=== PATIENT | female | born 1945 | race Asian ===

== ENCOUNTER 2023-03-25 19:35 | Inpatient (IN) | payer MEDICARE, MEDICAID ==
[~2023-03-25] VITALS: Ht 167.6 cm; Wt 51.4 kg
[2023-03-25 20:25] LABS: Basophils # (auto) 0 10 ^3/uL (0-0.2); Eosinophils # (auto) 0 10 ^3/uL (0-0.8); Hemoglobin 10.9 g/dL (12.2-16.2); Neutrophils # (auto) 6.1 10 ^3/uL (1.6-8.6)
[2023-03-25 20:28] LABS: Basophils % (auto) 0.4 % (0.0-2.0); Eosinophils % (auto) 0.1 % (0.0-7.0); Hematocrit 35.5 % (36.0-46.0); Lymphocytes # (auto) 1.3 10 ^3/uL (0.4-5.4); Lymphocytes % (auto) 15.3 % (10.0-50.0); Mean Corpuscular Hemoglobin 23.5 pg (28.0-32.0); Mean Corpuscular Hgb Conc. 30.8 g/dL (32.0-36.0); Mean Corpuscular Volume 76.4 fL (80.0-100.0); Monocytes # (auto) 1.2 10 ^3/uL (0-1.3); Monocytes % (auto) 13.6 % (0.0-12.0); Neutrophils % (auto) 70.6 % (37.0-80.0); Nucleated Red Blood Cells % 0.1 %; Red Blood Cells 4.65 10^6/uL (4.0-5.20); Red Cell Distribution Width 17.8 % (11.8-14.3); White Blood Cell 8.6 10^3/uL (4.4-10.8)
[2023-03-25 20:37] LABS: Chloride 102 mmol/L (98-107); Potassium 4.7 mmol/L (3.5-5.1); Sodium 135 mmol/L (136-145)
[2023-03-25 20:38] LABS: Anion Gap 6 (5-15); Calcium 9.2 mg/dL (8.5-10.1); Carbon Dioxide 27 mmol/L (20-30)
[2023-03-25 20:43] LABS: BUN/Creatinine Ratio 20.6 (10.0-20.0); Blood Urea Nitrogen 36 mg/dL (9-23); Glucose 146 mg/dL (74-106)
[2023-03-25] MEDS: ACETAMINOPHEN 500 MG TAB PO ONE (20:45)
[2023-03-25 21:45] VITALS: PULSE 65; RESP 14; O2SAT 98
[2023-03-25] MEDS: ENOXAPARIN SOD 40 MG/0.4 ML SYRINGE SC ONE (22:28)
[2023-03-25 23:17] LABS: Urine Bacteria FEW /hpf (None Seen); Urine Blood Negative /uL (Negative); Urine Clarity Clear (Clear); Urine Color Yellow (Yellow); Urine Protein, UAD 1+ (Negative); Urine Specific Gravity 1.026 (1.001-1.035); Urine Urobilinogen Normal (Negative); Urine WBC 3 /hpf (0 - 5); Urine pH 5.5 (5.0-8.0)
[2023-03-26] MEDS: SODIUM CHLORIDE 0.9% 1,000 ML IV ONE (00:32)
[2023-03-26] MEDS ORDERED: NITROGLYCERIN 0.4 MG SL TAB SL PRN (04:15)
[2023-03-26] MEDS ORDERED: ONDANSETRON HCL 4 MG/2 ML VIAL IV PRN (04:15)
[2023-03-26] MEDS ORDERED: MORPHINE SULFATE INJ 2 MG/ml SYRG IV PRN (04:15)
[2023-03-26 08:00] VITALS: PULSE 61; RESP 14; O2SAT 98
[2023-03-26 09:21] LABS: Magnesium 2.1 mg/dL (1.6-2.6)
[2023-03-26] MEDS: ASPirin 81 mg TAB PO SCH (10:40)
[2023-03-26] MEDS: MECLIZINE HCL 25 MG TAB PO SCH (11:27)
[2023-03-26] MEDS: SODIUM CHLORIDE 0.9% 1,000 ML IV SCH (13:49)
[2023-03-26 15:55] VITALS: BP 162/53; PULSE 61; RESP 18; TEMP 98.3; O2SAT 98
[2023-03-26] MEDS: ALBUTEROL SULF 2.5 MG/0.5ML(0.5%) NEB SOLN NEB PRN (16:25)
[2023-03-26] MEDS: ENOXAPARIN SOD 30 MG/0.3 ML SYRINGE SC SCH (17:28)
[2023-03-26 19:00] VITALS: PULSE 65; RESP 14; O2SAT 100
[2023-03-26] MEDS: ATORVASTATIN 20 MG TAB PO SCH (22:24)
[2023-03-26 23:25] VITALS: BP 147/58; PULSE 69; RESP 18; O2SAT 95
[2023-03-26 23:45] VITALS: PULSE 67; RESP 18; O2SAT 94
[2023-03-27] VITALS (13 sets, daily range): BP systolic 88–130; BP diastolic 35–71; PULSE 62–76; RESP 15–19; TEMP 97.9–98.4; O2SAT 94–100
[2023-03-27 06:22] LABS: Chloride 103 mmol/L (98-107); Potassium 4.5 mmol/L (3.5-5.1); Sodium 136 mmol/L (136-145)
[2023-03-27 06:23] LABS: Anion Gap 7 (5-15); Basophils # (auto) 0 10 ^3/uL (0-0.2); Calcium 8.7 mg/dL (8.5-10.1); Carbon Dioxide 26 mmol/L (20-30); Eosinophils # (auto) 0.1 10 ^3/uL (0-0.8); Lymphocytes # (auto) 1.6 10 ^3/uL (0.4-5.4); Monocytes # (auto) 0.5 10 ^3/uL (0-1.3); Neutrophils # (auto) 1.9 10 ^3/uL (1.6-8.6)
[2023-03-27 06:25] LABS: Basophils % (auto) 0.4 % (0.0-2.0); Eosinophils % (auto) 2.9 % (0.0-7.0); Hematocrit 32.9 % (36.0-46.0); Hemoglobin 10.4 g/dL (12.2-16.2); Lymphocytes % (auto) 38.4 % (10.0-50.0); Mean Corpuscular Hemoglobin 23.7 pg (28.0-32.0); Mean Corpuscular Hgb Conc. 31.5 g/dL (32.0-36.0); Mean Corpuscular Volume 75.2 fL (80.0-100.0); Monocytes % (auto) 12.9 % (0.0-12.0); Neutrophils % (auto) 45.4 % (37.0-80.0); Nucleated Red Blood Cells % 0.2 %; Partial Thromboplastin Time 31.7 SEC (24.5-34.5); Prothrombin Time 10.5 sec (9.3-11.8); Red Blood Cells 4.37 10^6/uL (4.0-5.20); Red Cell Distribution Width 17.7 % (11.8-14.3); White Blood Cell 4.2 10^3/uL (4.4-10.8)
[2023-03-27 06:28] LABS: BUN/Creatinine Ratio 18.1 (10.0-20.0); Glucose 93 mg/dL (74-106)
[2023-03-27 06:35] LABS: Blood Urea Nitrogen 23 mg/dL (9-23)
[2023-03-27] MEDS: ASPirin 81 mg TAB PO SCH (10:00)
[2023-03-27] MEDS: LIDOCAINE 2%HCL (LOCAL ANESTH.) INJ 20ML MDV ONE (14:10)
[2023-03-27] MEDS: VERAPAMIL 2.5MG/ML INJ 2ML VIAL IV ONE ×2 (14:10→15:02)
[2023-03-27] MEDS: SODIUM CHL 0.9% 0 ML ONE (14:10)
[2023-03-27] MEDS: HEPARIN SODIUM (PORCINE) 5000 UNITS/ML 1ML VIAL ONE (14:10)
[2023-03-27] MEDS: MIDAZOLAM HCL 2MG/2ML 2ml VIAL (1mg/ml) ONE (14:10)
[2023-03-27] MEDS: ANGIOMAX 250 MG VIAL IV ONE (14:10)
[2023-03-27] MEDS: fentaNYL CITRATE 100 MCG/2 ML VL ONE (14:10)
[2023-03-27] MEDS: FAMOTIDINE (10MG/ML) 2ML VL IV ONE (14:22)
[2023-03-27] MEDS: SODIUM CHLORIDE 0.9% 1,000 ML IV SCH (17:23)
[2023-03-28] VITALS (13 sets, daily range): BP systolic 104–136; BP diastolic 45–58; PULSE 72–90; RESP 16–18; TEMP 97.8–98.4; O2SAT 93–100
[2023-03-28] MEDS: ACETAMINOPHEN 325 MG TAB PO PRN (05:44)
[2023-03-28] MEDS ORDERED: METO25TA5 PO (10:03)
[2023-03-28] MEDS ORDERED: ASPI1TAB20 PO (10:03)
[2023-03-28] MEDS ORDERED: LISI20TA56 PO (10:03)
[2023-03-28] MEDS ORDERED: ATO40T PO (10:03)
[2023-03-28 11:15] LABS: Base Excess -2.3 mmol/L (-2.0-2.0)
== END 2023-03-28 19:10 | disposition home or self-care (01) | DRG 280 ==
LOC: ER 19:35 → EDBD 19:35 → TELE 03-26 04:14 → TELE-EAST 03-26 22:50
PROVIDERS: ADMIT Nurse Practitioner; ATTEND Family Medicine
PROC: 4A023N7 Measurement of Cardiac Sampling and Pressure, Left Heart, Percutaneous Approach (ICD-10-PCS; principal; 2023-03-27)
PROC: B211YZZ Fluoroscopy of Multiple Coronary Arteries using Other Contrast (ICD-10-PCS; 2023-03-27)
DX: I21.4 Non-ST elevation (NSTEMI) myocardial infarction (principal); N17.0 Acute kidney failure with tubular necrosis; D64.9 Anemia, unspecified; I10 Essential (primary) hypertension; I95.9 Hypotension, unspecified; M10.9 Gout, unspecified; E78.00 Pure hypercholesterolemia, unspecified; I25.10 Atherosclerotic heart disease of native coronary artery without angina pectoris; E11.51 Type 2 diabetes mellitus with diabetic peripheral angiopathy without gangrene; I70.0 Atherosclerosis of aorta; Z87.891 Personal history of nicotine dependence; R06.03 Acute respiratory distress
CPT/HCPCS: 36415; 36600; 71045; 80048; 80061; 81001; 82805; 83036; 83605; 83735; 83880; 84443; 84484; 85025; 85379; 85610; 85730; 86850; 86900; 86901; 93005; 93306; 93458; 94640; 99152; G0378; J2250; J3490